=== PATIENT | male | born 1950 | race Caucasian/White ===

== ENCOUNTER 2019-05-12 01:25 | Outpatient (CLI) | payer MEDICARE, BC, SELFPAY ==
--- NOTE | 2019-05-12 11:15 | DI.NM_ITS ---
APPROVED REPORT Exam: Pharmacologic Patient Location: Out-Patient Room/Bed: Stress Nurse: Suzette Miller RN BMI: 27.12 Baseline Rhythm: First Degree Heart Block Comment: Bradycardic Indications: Patient testing for further risk stratification. Medical History Medical History: Pulmonary Embolism. Illofemoral Deep Vein Thrombosis, Heterozygous Factor V Leiden M utation. Cardiac Medications: Eliquis, Sildenafil. Allergies: No known drug allergies Cardiac Risk Factors: FHX of CAD, Hyperlipidemia, PVD Previous Cardiac Procedures: None Pretest Chest Pain Characteristics: None Exercise History: Physically active Physical Disabilities: None Lung Sounds: Clear to auscultation Heart Sounds: Regular, Bradycardia. Stress Test Details Test: Pharmacologic stress testing performed using 0.4 mg of regadenoson per 5 mL given IV over 10 s econds. Nuclear Acquisition: Rest Tc-99m/Stress Tc-99m 1 day Rest Isotope: Tc-99m Sestamibi. Dose: 11.0 Date: 05/12/2019 Injection Time: 1130 Stress Isotope: Tc-99m Sestamibi. Dose: 34.0 Date: 05/12/2019 Injection Time: 1345 HR Resting HR Supine: 43 bpm Max Heart Rate (APMHR): 152 bpm Target HR (85% APMHR): 129 bpm Max HR Achieved: 70 bpm % of APMHR: 46 BP Resting BP Supine: 158/92 mmHg Max BP: 168/80 mmHg ECG Resting ECst degree AV block Stress ECG: Sinus Rhythm ST Change: Normal Arrhythmia: None Recovery ECG: Sinus Rhythm Recovery ST Change: Normal Recovery Arrhythmia: None Clinical Stress Symptoms: Bilateral LE Flushing at 1 minute 23 seconds post Lexiscan injection, which dissip ated by 4 minutes post Lexiscan injection. Stress ECG Conclusion 1. This is a pharmacological stress test. 2. The EKG portion of this exam was nondiagnostic. Protocol Used: Regadenoson Stress Test Summary STAGE HR BP Symptoms NOTES Supine 43 158/92 1 min post Lexiscan injection 68 168/80 3 min post Lexiscan injection 56 138/80 6 min post Lexiscan injection 52 140/80 MPI Conclusion Ejection fraction was 45% with stress. No motion abnormalities There was no evidence of ischemia on the imaging portion of this exam. This represents a normal SPECT stress test.
[2019-05-12] MEDS: Normal Saline Flush 10 ML SYR IVP (14:46)
[2019-05-12] MEDS: Regadenoson 0.4 MG/5 ML SYR IVP (14:51)
== END 2019-05-12 01:45 ==
PROVIDERS: PCP Internal Medicine Interventional Cardiology; Visit Provider Internal Medicine Interventional Cardiology
DX: R06.09 Other forms of dyspnea (principal); R00.1 Bradycardia, unspecified; I44.0 Atrioventricular block, first degree; Z82.49 Family history of ischemic heart disease and other diseases of the circulatory system
CPT/HCPCS: 78452; 93016; 93018; 93017; J2785

== ENCOUNTER → 2019-11-05 10:30 | Outpatient (BNVA) | payer MEDICARE, BC, OTHER, SELFPAY | PROVIDERS: PCP Internal Medicine Interventional Cardiology; Referring Provider Family Medicine; Visit Provider Psychiatry & Neurology Neurology | DX: I95.1 Orthostatic hypotension (principal); E53.8 Deficiency of other specified B group vitamins; R41.3 Other amnesia | CPT/HCPCS: 99205 ==

== ENCOUNTER → 2019-12-10 08:23 | Outpatient (BNVA) | payer MEDICARE, OTHER, SELFPAY | PROVIDERS: PCP Internal Medicine Interventional Cardiology; Referring Provider Internal Medicine Interventional Cardiology; Visit Provider Physician Assistant | DX: I49.5 Sick sinus syndrome (principal); Z45.018 Encounter for adjustment and management of other part of cardiac pacemaker | CPT/HCPCS: 93280; 99212 ==

== ENCOUNTER → 2020-02-04 08:12 | Outpatient (BNVA) | payer MEDICARE, BC, SELFPAY | PROVIDERS: PCP Internal Medicine Interventional Cardiology; Referring Provider Internal Medicine Interventional Cardiology; Visit Provider Psychiatry & Neurology Neurology | DX: I95.1 Orthostatic hypotension (principal); E53.8 Deficiency of other specified B group vitamins; R41.3 Other amnesia | CPT/HCPCS: 99213; 99443 ==

== ENCOUNTER → 2020-03-17 07:30 | Outpatient (BNVA) | payer MEDICARE, BC, SELFPAY | PROVIDERS: PCP Internal Medicine Interventional Cardiology; Referring Provider Internal Medicine Interventional Cardiology; Visit Provider Psychiatry & Neurology Neurology | DX: I95.1 Orthostatic hypotension (principal); E53.8 Deficiency of other specified B group vitamins; R41.3 Other amnesia | CPT/HCPCS: 99443 ==

== ENCOUNTER → 2020-04-07 07:28 | Outpatient (BNVA) | payer MEDICARE, BC, SELFPAY | PROVIDERS: PCP Internal Medicine Interventional Cardiology; Referring Provider Internal Medicine Interventional Cardiology; Visit Provider Psychiatry & Neurology Neurology | DX: G62.9 Polyneuropathy, unspecified (principal); E53.8 Deficiency of other specified B group vitamins; I95.1 Orthostatic hypotension; R41.3 Other amnesia | CPT/HCPCS: 99443 ==

== ENCOUNTER → 2020-06-07 12:45 | Outpatient (BNVA) | payer MEDICARE, OTHER, SELFPAY | PROVIDERS: PCP Internal Medicine Interventional Cardiology; Referring Provider Internal Medicine Interventional Cardiology; Visit Provider Psychiatry & Neurology Neurology | DX: I95.1 Orthostatic hypotension (principal); R41.3 Other amnesia; E53.8 Deficiency of other specified B group vitamins | CPT/HCPCS: 99215 ==

== ENCOUNTER → 2020-10-04 12:35 | Outpatient (BNVA) | payer MEDICARE, OTHER, SELFPAY | PROVIDERS: PCP Internal Medicine Interventional Cardiology; Referring Provider Internal Medicine Interventional Cardiology; Visit Provider Psychiatry & Neurology Neurology | DX: I95.1 Orthostatic hypotension (principal); R41.3 Other amnesia; E53.8 Deficiency of other specified B group vitamins | CPT/HCPCS: 99215 ==

== ENCOUNTER → 2020-12-08 12:55 | Outpatient (BNVA) | payer MEDICARE, OTHER, SELFPAY | PROVIDERS: PCP Internal Medicine Interventional Cardiology; Referring Provider Internal Medicine Interventional Cardiology; Visit Provider Physician Assistant | DX: I95.1 Orthostatic hypotension (principal); Z45.018 Encounter for adjustment and management of other part of cardiac pacemaker | CPT/HCPCS: 93280; 99212 ==

== ENCOUNTER → 2021-04-07 12:38 | Outpatient (BNVA) | payer MEDICARE, OTHER, SELFPAY | PROVIDERS: PCP Family Medicine; Referring Provider Internal Medicine Interventional Cardiology; Visit Provider Psychiatry & Neurology Neurology | DX: I95.1 Orthostatic hypotension (principal); R41.3 Other amnesia; E53.8 Deficiency of other specified B group vitamins | CPT/HCPCS: 99214 ==

== ENCOUNTER → 2021-06-08 12:44 | Outpatient (BNVA) | payer MEDICARE, OTHER, SELFPAY | PROVIDERS: PCP Family Medicine; Referring Provider Family Medicine; Visit Provider Physician Assistant | DX: I95.1 Orthostatic hypotension (principal); Z95.0 Presence of cardiac pacemaker | CPT/HCPCS: 93280 ==

== ENCOUNTER → 2021-10-06 12:39 | Outpatient (BNVA) | payer MEDICARE, OTHER, SELFPAY | PROVIDERS: PCP Family Medicine; Referring Provider Family Medicine; Visit Provider Psychiatry & Neurology Neurology | DX: I95.1 Orthostatic hypotension (principal); E53.8 Deficiency of other specified B group vitamins; R41.3 Other amnesia | CPT/HCPCS: 99214 ==

== ENCOUNTER → 2021-12-07 12:51 | Outpatient (BNVA) | payer MEDICARE, OTHER, SELFPAY | PROVIDERS: PCP Family Medicine; Referring Provider Family Medicine; Visit Provider Physician Assistant | DX: Z95.0 Presence of cardiac pacemaker (principal); I95.1 Orthostatic hypotension | CPT/HCPCS: 93279 ==

== ENCOUNTER → 2022-04-25 10:44 | Outpatient (BNVA) | payer MEDICARE, OTHER, SELFPAY | PROVIDERS: PCP Family Medicine; Referring Provider Family Medicine; Visit Provider Psychiatry & Neurology Neurology | DX: I95.1 Orthostatic hypotension (principal); I45.89 Other specified conduction disorders; R41.3 Other amnesia; E53.8 Deficiency of other specified B group vitamins; R35.1 Nocturia; G47.9 Sleep disorder, unspecified | CPT/HCPCS: 99215 ==

== ENCOUNTER 2022-06-07 07:54 | Outpatient (CLI) | payer MEDICARE, OTHER, SELFPAY ==
--- NOTE | 2022-06-07 07:45 | RT.EKG_ITS ---
APPROVED REPORT Exam: Resting ECG Reason for Exam: Sick sinus syndrome Patient Location: O HR:60 bpm ECG Measurements Heart Rate 60 AXIS VT 241 P [id number] QRSd 100 QRS 4 QT 406 T -2 QTc 406 Conclusion Atrial-paced rhythm
== END 2022-06-07 07:55 | disposition home or self-care (01) ==
LOC: DI.CARD 07:55
PROVIDERS: PCP Family Medicine; Visit Provider Physician Assistant
DX: Z95.0 Presence of cardiac pacemaker; I95.1 Orthostatic hypotension
CPT/HCPCS: 93010

== ENCOUNTER → 2022-06-07 14:59 | Outpatient (BNVA) | payer MEDICARE, OTHER, SELFPAY | PROVIDERS: PCP Family Medicine; Visit Provider Physician Assistant | DX: Z46.89 Encounter for fitting and adjustment of other specified devices (principal); Z95.0 Presence of cardiac pacemaker; I95.1 Orthostatic hypotension | CPT/HCPCS: 93005; 93280; 99211; 99213 ==

== ENCOUNTER → 2022-10-24 10:24 | Outpatient (BNVA) | payer MEDICARE, OTHER, SELFPAY | PROVIDERS: PCP Family Medicine; Referring Provider Family Medicine; Visit Provider Psychiatry & Neurology Neurology | DX: I95.1 Orthostatic hypotension (principal); R41.3 Other amnesia; E53.8 Deficiency of other specified B group vitamins | CPT/HCPCS: 99215 ==

== ENCOUNTER → 2022-12-06 15:00 | Outpatient (BNVA) | payer MEDICARE, OTHER, SELFPAY | PROVIDERS: PCP Family Medicine; Visit Provider Physician Assistant | DX: Z45.018 Encounter for adjustment and management of other part of cardiac pacemaker (principal); Z79.01 Long term (current) use of anticoagulants; I49.5 Sick sinus syndrome; I95.1 Orthostatic hypotension; K51.40 Inflammatory polyps of colon without complications | CPT/HCPCS: 93280 ==

== ENCOUNTER → 2023-04-25 09:48 | Outpatient (BNVA) | payer MEDICARE, OTHER, SELFPAY | PROVIDERS: PCP Family Medicine; Referring Provider Family Medicine; Visit Provider Psychiatry & Neurology Neurology | DX: R41.3 Other amnesia (principal); I95.1 Orthostatic hypotension; E53.8 Deficiency of other specified B group vitamins; G90.9 Disorder of the autonomic nervous system, unspecified; D47.2 Monoclonal gammopathy; G62.89 Other specified polyneuropathies; G47.52 REM sleep behavior disorder | CPT/HCPCS: 99215 ==

== ENCOUNTER → 2023-06-06 13:50 | Outpatient (BNVA) | payer MEDICARE, OTHER, SELFPAY | PROVIDERS: PCP Family Medicine; Visit Provider Student in an Organized Health Care Education/Training Program | DX: I95.1 Orthostatic hypotension (principal); Z45.010 Encounter for checking and testing of cardiac pacemaker pulse generator [battery] | CPT/HCPCS: 93280 ==

== ENCOUNTER → 2023-10-24 10:52 | Outpatient (BNVA) | payer MEDICARE, OTHER, SELFPAY | PROVIDERS: PCP Family Medicine; Visit Provider Psychiatry & Neurology Neurology | DX: I95.1 Orthostatic hypotension (principal); R41.3 Other amnesia; E53.8 Deficiency of other specified B group vitamins; G90.9 Disorder of the autonomic nervous system, unspecified; D47.2 Monoclonal gammopathy; G62.89 Other specified polyneuropathies; G47.52 REM sleep behavior disorder | CPT/HCPCS: 99215; G2212 ==

== ENCOUNTER 2024-03-26 08:21 | Outpatient (CLI) | payer MEDICARE, OTHER, SELFPAY ==
--- NOTE | 2024-03-26 08:15 | RT.EKG_ITS ---
APPROVED REPORT Exam: Resting ECG Reason for Exam: sinus node dysfunction Patient Location: O HR:63 bpm ECG Measurements Heart Rate 63 AXIS OR 250 P [id number] QRSd 96 QRS -4 QT 400 T -11 QTc 410 Conclusion Atrial-paced complexes...other complexes also detected Prolonged OR interval...OR >220, V-rate 50- 90
== END 2024-03-26 08:22 | disposition home or self-care (01) ==
LOC: DI.CARD 08:22
PROVIDERS: PCP Family Medicine; Visit Provider Internal Medicine Cardiovascular Disease
DX: Z95.0 Presence of cardiac pacemaker (principal); I49.5 Sick sinus syndrome
CPT/HCPCS: 93010

== ENCOUNTER → 2024-03-26 08:54 | Outpatient (BNVA) | payer MEDICARE, OTHER, SELFPAY | PROVIDERS: PCP Family Medicine; Visit Provider Internal Medicine Cardiovascular Disease | DX: Z95.810 Presence of automatic (implantable) cardiac defibrillator (principal) | CPT/HCPCS: 93005; 93280 ==

== ENCOUNTER → 2024-05-01 14:53 | Outpatient (BNVA) | payer MEDICARE, OTHER, SELFPAY | PROVIDERS: PCP Family Medicine; Referring Provider Family Medicine; Visit Provider Psychiatry & Neurology Neurology | DX: I95.1 Orthostatic hypotension (principal); R41.3 Other amnesia; E53.8 Deficiency of other specified B group vitamins; G90.9 Disorder of the autonomic nervous system, unspecified; D47.2 Monoclonal gammopathy; G62.89 Other specified polyneuropathies; G47.52 REM sleep behavior disorder | CPT/HCPCS: 99214 ==

== ENCOUNTER → 2024-09-24 14:28 | Outpatient (BNVA) | payer MEDICARE, OTHER, SELFPAY | PROVIDERS: PCP Family Medicine; Referring Provider Family Medicine; Visit Provider Internal Medicine Cardiovascular Disease | DX: I95.1 Orthostatic hypotension (principal); Z45.018 Encounter for adjustment and management of other part of cardiac pacemaker | CPT/HCPCS: 93280 ==